=== PATIENT | male | born 1950 | race Caucasian/White ===

== ENCOUNTER 2016-10-24 12:48 | Inpatient (IN) | payer BC ==
--- NOTE | ~2016-10-24 | CN ---
Consultation Report [address] [place]. [address] NAME: MICHAEL KERNS : 48 STATUS : ADM IN PAT#: [id number] AGE: 65 ADM/REG DATE : 10/24/16 MR#: [id number] REPORT SERV DATE: 10/24/16 DICTATED BY: SCARLET ALTMAN DATE: 10/24/16 REPORT STATUS : Draft TRANSCRIBED BY: MODL DATE: 10/24/16 CONSULTATION DATE OF CONSULTATION: 10/24/2016 HISTORY OF PRESENT ILLNESS: This is a 65-year-old male patient, who is diabetic, came to the [facility] complaining severe chest pain. Please see dictated H and P. REASON FOR CONSULTATION: Diabetic management. HOSPITAL COURSE: The patient was admitted to hospital with a non-ST elevation MT and transferred to [facility] to get cardiac catheterization. He had a cardiac catheterization today, 10/24/2016, had two drug-eluted stents inserted by Dr. Wilson. After that, he was admitted in the CCU to get close observation tonight. Hospitalist Services was consulted for diabetic management. He is diabetic and taking metformin 500 mg once at nighttime and his last A1c was found to be in the [facility] in 08/2016 is 6.6. Currently, he is not having any chest pain, sweating, short of breath, or palpitation. All the review of systems are negative. PAST MEDICAL HISTORY: 1. Subdural hematoma in 1997. 2. Hypertension. 3. Diabetes. 4. Hyperlipidemia. 5. Depression. PAST SURGICAL HISTORY: 1. Had sleep apnea surgery. 2. Sinus surgery. 3. Eye surgery twice. ALLERGIES: 1. OUTDOOR POLLENS. 2. PENICILLIN G. 3. AVELOX. 4. LATEX. MEDICATIONS AT HOME: 1. Flonase spray once a day. Consultation Report [place] [id number] [facility] [place]. [address] NAME: MICHAEL KERNS : 48 STATUS : ADM IN PAT#: [id number] AGE: 65 ADM/REG DATE : 10/24/16 MR#: [id number] REPORT SERV DATE: 10/24/16 DICTATED BY: SCARLET ALTMAN DATE: 10/24/16 REPORT STATUS : Draft TRANSCRIBED BY: MODL DATE: 10/24/16 2. Neurontin 300 mg twice a day. 3. Lopid 600 mg twice a day. 4. Hydrocodone 10/325 every 8 hours as needed. 5. Motrin 100 mg twice a day. 6. Atrovent two sprays three times a day. 7. Xyzal 5 mg once a day. 8. Glucophage 500 mg once at nighttime. 9. Singulair 10 mg once at nighttime. 10.Xanax 1 mg at nighttime. 11.Aspirin 81 mg once a day. 12.Lipitor 10 mg once at bedtime. 13.Biotin 5 mg once a day. 14.Zyrtec 10 mg once a day. 15.Celexa 40 mg once a day. 16.Dexilant 60 mg once a day. 17.Pepcid 20 mg once at nighttime. 18.Olmesartan/amlodipine/hydrochlorothiazide 40/5/12.5 one tablet once a day. 19.Probiotic once a day. PHYSICAL EXAMINATION: VITAL SIGNS: Blood pressure is 108/74, heart rate 81, respiratory rate 16, and saturation 100% on room air. GENERAL APPEARANCE: He is alert, awake, not in acute distress. HEENT: Pupils are equal, round, and reactive to light. NECK: There is no jugular venous distention. No nodes palpable. CHEST: Clear to auscultation bilaterally. CARDIOVASCULAR: Has a regular rhythm and rate. No murmur, rub, or gallop. EXTREMITIES: There is no pitting edema. LABORATORY DATA: Laboratory showed sodium 136, potassium 4.5, chloride 98, bicarb 28, BUN 17, creatinine 0.96, glucose 165. WBC 9.5, hemoglobin 15.4, hematocrit 43.2, platelet 207. INR was 1.1. Electrocardiogram initially showed some T-wave inversion in lateral leads. ASSESSMENT/PLAN: 1. Diabetes mellitus. 2. Coronary artery disease, status post drug-eluting stent x2. 3. History of subdural hematoma. 4. History of neuropathy. 5. The patient has been very stable from a diabetic standpoint. We will use insulin sliding scale while he is in the hospital. 6. He will be safely discharged to home with the metformin resumed. Consultation Report [address] [place]. [address] NAME: MICHAEL KERNS : 48 STATUS : ADM [facility]#: [id number] AGE: 65 ADM/REG DATE : 10/24/16 MR#: [id number] REPORT SERV DATE: 10/24/16 DICTATED BY: SCARLET ALTMAN DATE: 10/24/16 REPORT STATUS : Draft TRANSCRIBED BY: JOSE ANTONIO DATE: 10/24/16 RADU/JOSE ANTONIO Scarlet Altman M.D. / [id number] CC: Dionne Resendiz M.D.
[~2016-10-24 12:48] MED LIST: ACET500CAP PO; ALPRAZOLAM; ATORVASTATIN; ATRONASAL3 NAS; BIOTIN5 MG PO; CELEXA20 PO; CITALOPRAM; FISH OIL1200 MG PO; FLONASE NAS; FLUCON1 PO; GABAPENTIN; GEMFIBROZIL; GLUCPH PO; HALF81 PO; HYDROCODONE/APAP; IBU800 PO; KAPIDEX60 MG PO; LIBRAX; LIBRAX PO; LIPITOR10 PO; LOPID6 PO; MONTELUKAST; MULTIVITAMI1 PO; NEUR300 PO; NORCO1 TAB PO; PEP20 PO; PROBIOTIC PO; PROTONIX PO; REG PO; SAW PALMETT2 PO; SINGULAIR1 PO; TRIBENZOR; TRIBENZOR 40-51 EACH PO; TUMERIC PO; VITAMIN D400 UNI1 PO; XANAX1 MG PO; XYZAL5 MG PO; ZYRTEC ALLGY10 MG PO
[2016-10-25 14:26] LABS: BASOPHILS 0.3 %; BASOPHILS ABSOLUTE 0.03 10/3/uL (0.0-0.16); EOSINOPHILS 2.2 %; EOSINOPHILS ABSOLUTE 0.24 10/3/uL (0.0-0.53); HEMATOCRIT 42.7 % (40.0-51.0); HEMOGLOBIN 15.1 g/dL (13.6-17.8); IMMATURE GRANULOCYTES 0.2 %; IMMATURE GRANULOCYTES ABSOLUTE 0.02 10/3/uL (0.0-0.11); LYMPHOCYTES 31.9 %; LYMPHOCYTES ABSOLUTE 3.41 10/3/uL (0.67-4.30); MEAN CORPUS HGB CONC 35.4 g/dL (32.0-36.0); MEAN CORPUSCULAR VOLUME 87.7 fL (80-100); MEAN PLATELET VOLUME 9.5 fL (9.2-13.0); MONOCYTES 9.9 %; MONOCYTES ABSOLUTE 1.06 10/3/uL (0.21-1.20); NEUTROPHILS 55.5 %; NEUTROPHILS ABSOLUTE 5.94 10/3/uL (2.02-8.40); PLATELET COUNT 166 10/3/uL (150-400); RBC DISTRIBUTION WIDTH 13.1 % (12.0-16.0); RED CELL COUNT 4.87 10/6/uL (4.7-6.1); WHITE BLOOD CELLS 10.7 10/3/uL (4.5-10.5)
[2016-10-25 14:27] LABS: MANUAL DIFF NO %
[2016-10-25 14:57] LABS: A/G RATIO 1.2 (0.7-1.9); ALBUMIN 3.7 G/DL (3.5-5.0); ALKALINE PHOSPHATASE 53 U/L (45-117); BUN (BLOOD UREA NITROGEN) 17 MG/DL (6-23); CALCIUM, SERUM 9.1 MG/DL (8.5-10.4); CHLORIDE, SERUM 99 MMOL/L (96-112); CK-MB 106.2 NG/ML; CO2 (CARBON DIOXIDE) 30 MMOL/L (24-34); CPK 1069 U/L (0-200); CREATININE 0.89 MG/DL (0.70-1.30); GFR AFRICAN AMERICAN 103 ML/MIN (>=60); GFR NON AFRICAN AMERICAN 89 ML/MIN (>=60); GLOBULIN 3.1 G/DL (2.5-4.1); GLUCOSE, SERUM 133 MG/DL (60-99); POTASSIUM, SERUM 4.5 MMOL/L (3.5-5.3); SGOT(AST) 255 U/L (5-40); SGPT(ALT) 73 U/L (5-65); SODIUM, SERUM 135 MMOL/L (135-148); TOTAL BILIRUBIN 0.6 MG/DL (0-1.2); TOTAL PROTEIN 6.8 G/DL (6.0-8.5)
[2016-10-25 14:58] LABS: CKMB INDEX (NOT ORD) 9.9
[2016-10-26 06:33] LABS: BASOPHILS 0.5 %; BASOPHILS ABSOLUTE 0.05 10/3/uL (0.0-0.16); EOSINOPHILS 3.4 %; EOSINOPHILS ABSOLUTE 0.33 10/3/uL (0.0-0.53); HEMATOCRIT 43.9 % (40.0-51.0); HEMOGLOBIN 15.6 g/dL (13.6-17.8); IMMATURE GRANULOCYTES 0.2 %; IMMATURE GRANULOCYTES ABSOLUTE 0.02 10/3/uL (0.0-0.11); LYMPHOCYTES 40.9 %; MEAN CORPUS HGB CONC 35.5 g/dL (32.0-36.0); MEAN CORPUSCULAR HEMOGLOB 31.1 pg (26.0-34.0); MEAN CORPUSCULAR VOLUME 87.5 fL (80-100); MEAN PLATELET VOLUME 9.3 fL (9.2-13.0); MONOCYTES 10.9 %; MONOCYTES ABSOLUTE 1.07 10/3/uL (0.21-1.20); NEUTROPHILS 44.1 %; NEUTROPHILS ABSOLUTE 4.32 10/3/uL (2.02-8.40); PLATELET COUNT 163 10/3/uL (150-400); RBC DISTRIBUTION WIDTH 13.1 % (12.0-16.0); RED CELL COUNT 5.02 10/6/uL (4.7-6.1); WHITE BLOOD CELLS 9.8 10/3/uL (4.5-10.5)
[2016-10-26 06:34] LABS: MANUAL DIFF NO %
[2016-10-26 06:51] LABS: BUN (BLOOD UREA NITROGEN) 19 MG/DL (6-23); CALCIUM, SERUM 9.6 MG/DL (8.5-10.4); CHLORIDE, SERUM 98 MMOL/L (96-112); CO2 (CARBON DIOXIDE) 31 MMOL/L (24-34); CREATININE 1.12 MG/DL (0.70-1.30); GFR AFRICAN AMERICAN 79 ML/MIN (>=60); GFR NON AFRICAN AMERICAN 68 ML/MIN (>=60); GLUCOSE, SERUM 145 MG/DL (60-99); POTASSIUM, SERUM 4.1 MMOL/L (3.5-5.3); SODIUM, SERUM 135 MMOL/L (135-148)
[2016-10-26] MEDS ORDERED: ASAB PO (08:33)
[2016-10-26] MEDS ORDERED: LIPITOR40 PO (08:35)
[2016-10-26] MEDS ORDERED: BENICAR20 PO (08:43)
[2016-10-26] MEDS ORDERED: PLAVIX PO (08:43)
[2016-10-26] MEDS ORDERED: COREG6 PO (08:44)
== END 2016-10-26 13:54 | disposition home or self-care (01) | DRG 247 ==
LOC: CORLMH 12:48 → CCU 14:32 → 7NO 10-25 17:52
PROVIDERS: Internal Medicine Cardiovascular Disease
PROC: 4A023N7 Measurement of Cardiac Sampling and Pressure, Left Heart, Percutaneous Approach (ICD-10-PCS; principal; 2016-10-24)
PROC: 027135Z Dilation of Coronary Artery, Two Arteries with Two Drug-eluting Intraluminal Devices, Percutaneous Approach (ICD-10-PCS; 2016-10-24)
PROC: B2111ZZ Fluoroscopy of Multiple Coronary Arteries using Low Osmolar Contrast (ICD-10-PCS; 2016-10-24)
PROC: B2151ZZ Fluoroscopy of Left Heart using Low Osmolar Contrast (ICD-10-PCS; 2016-10-24)
DX: I21.4 Non-ST elevation (NSTEMI) myocardial infarction (principal); J44.9 Chronic obstructive pulmonary disease, unspecified; I10 Essential (primary) hypertension; I25.10 Atherosclerotic heart disease of native coronary artery without angina pectoris; I25.5 Ischemic cardiomyopathy; E11.9 Type 2 diabetes mellitus without complications; E78.5 Hyperlipidemia, unspecified; Z88.0 Allergy status to penicillin; Z91.040 Latex allergy status; Z79.82 Long term (current) use of aspirin; K21.9 Gastro-esophageal reflux disease without esophagitis; Z88.8 Allergy status to other drugs, medicaments and biological substances; Z79.899 Other long term (current) drug therapy
CPT/HCPCS: 70450; 71010; 80048; 80053; 80076; 82550; 82553; 82962; 83690; 83735; 84484; 85025; 85610; 85730; 87641; 93005; 93458; 96365; 96375; 96376; 99152; 99153; 99285; A9270-GY; C1725; C1760; C1769; C1874; C1887; C8929; C9600; J0583; J2250; J2405; J3010; Q9957; Q9967